=== PATIENT | female | born 1945 | race Caucasian/White ===

== ENCOUNTER 2017-06-21 07:28 | Outpatient (CLI) | payer MEDICARE ==
[2017-06-21] MEDS ORDERED: ISOVUE-370 76%-LOCM 1 ML ONE (16:09)
== END 2017-06-21 07:29 | disposition home or self-care (01) ==
LOC: BICCT 07:28
PROVIDERS: ATTEND Internal Medicine Gastroenterology
DX: R10.84 Generalized abdominal pain (principal); K31.84 Gastroparesis; R11.2 Nausea with vomiting, unspecified; R19.8 Other specified symptoms and signs involving the digestive system and abdomen
CPT/HCPCS: 74177